=== PATIENT | male | born 1975 | race Caucasian/White ===

== ENCOUNTER 2020-12-24 14:54 | Emergency (ER) | payer SELFPAY ==
[~2020-12-24] VITALS: Ht 165.1 cm; Wt 69.9 kg
[2020-12-24 14:56] VITALS: Ht 165.1 cm; Wt 69.9 kg
[2020-12-24 15:58] LABS: BASOPHIL % 0.6 % (0.2-1.5); PLATELET COUNT 253 x10^3mcL (152-348); RED CELL DISTRIBUTION WIDTH 14.1 % (12.1-16.2)
[2020-12-24 18:33] VITALS: BP 130/82
== END 2020-12-24 18:33 | disposition home or self-care (01) ==
LOC: ED 14:54
PROVIDERS: Emergency Medicine
DX: B27.90 Infectious mononucleosis, unspecified without complication (principal); Z20.828 Contact with and (suspected) exposure to other viral communicable diseases
CPT/HCPCS: 86308; 87804; U0003